=== PATIENT | female | born 2000 | race Two or more races ===

== ENCOUNTER 2024-02-26 10:45 | Emergency (ER) | payer OTHER ==
[~2024-02-26] VITALS: Ht 170.2 cm; Wt 61.5 kg
[2024-02-26 11:11] LABS: Urine Bacteria None Seen /hpf (None Seen)
[2024-02-26 11:28] LABS: Urine Blood Negative /uL (Negative); Urine Clarity Clear (Clear); Urine Color Yellow (Yellow); Urine Mucus FEW (None Seen); Urine Protein, UAD 3+ (Negative); Urine Specific Gravity 1.027 (1.001-1.035); Urine Urobilinogen Normal (Negative); Urine WBC 3 /hpf (0 - 5); Urine pH 8.5 (5.0-9.0)
[2024-02-26 12:29] VITALS: TEMP 98.6
[2024-02-26] MEDS: HYDROcodone-ACET 10/325MG TAB PO ONE (12:31)
[2024-02-26 13:32] VITALS: BP 129/75; PULSE 67; RESP 18; O2SAT 100
== END 2024-02-26 13:33 | disposition home or self-care (01) ==
LOC: ER 10:45
DX: R10.2 Pelvic and perineal pain (principal)
CPT/HCPCS: 76830; 76856; 81001; 81025